=== PATIENT | female | born 2000 | race African-American/Black ===

== ENCOUNTER 2024-07-05 17:31 | Emergency (ER) | payer OTHER, SELFPAY ==
[2024-07-05 18:30] VITALS: BP 157/98; PULSE 116; RESP 18; TEMP 37.1; O2SAT 98; BMI 36.1
--- NOTE | 2024-07-05 18:30 | ED_ITS ---
HPI - Skin/Abscess/Foreign Bdy General Chief complaint: General Medical Stated complaint: cyst on tailbone, getting bigger/on antibiotics Time Seen by Provider: 07/05/24 20:32 History of Present Illness ED Provider: Ami BRAVO narrative: The patient is a 24-year-old who has had pain and swelling from a lesion on the buttocks for several days. Three days ago the patient went to an urgent care center and was diagnosed with a pilonidal cyst abscess and started on cephalexin. The patient has had a lot of discomfort when sitting and ultimately came to the emergency department today because of ongoing discomfort. No fever. The patient has never had this problem before. Related Data Allergies Allergy/AdvReac Type Severity Reaction Status Date / Time No Known Allergies Allergy Verified 07/05/24 18:38 Review of Systems Review of Systems: Yes all other systems are reviewed and are negative [facility] Social History Social History Alcohol intake: current Alcohol intake frequency: holidays/special occasions only Smoked in Last 30 Days: No Use of substances other than those prescribed or required for medical reasons: Yes Substance Use Type: Marijuana Substance Use Frequency: Occasionally Advance Directives: No Advance Directives Information Provided: No Patient : No Physical Exam Vital Signs: Vital Signs: Last Vital Signs Temp 97.3 F 07/05/24 22:56 Pulse 99 07/05/24 22:56 Resp 16 07/05/24 22:56 BP 146/94 H 07/05/24 22:56 Pulse Ox 99 07/05/24 22:56 O2 Del Method Room Air 07/05/24 22:56 BMI result Body Mass Index 36.1 Const: Other: The patient is awake, alert, pleasant, cooperative, nontoxic. HEENT: Other: Face is symmetrical. Mucous membranes moist. Eyes: Other: Pupils are round equal, conjunctivae clear Neck: Neck: Yes full ROM Resp: Effort & Inspection: normal respiratory effort Skin: Other: The patient has an area of swelling and tenderness at the upper portion of the gluteal cleft, slightly to the left of midline. There is fluctuance. No significant overlying erythema. Neuro: Other: The patient is awake and alert with a normal mental status. The patient seems to be moving all extremities normally and seems to be grossly neurologically intact. Extrem: Other: Full range of motion of the hips. Course Course Course Narrative: This is a Rapid Medical Exam performed in triage by Kelsie Bond PA-C. Full HPI, ROS and PE to be performed by primary ED provider. 24 year-old transgender FTM w/ PMHx pilonidal cyst presenting to the ED c/o worsening cyst x3 days. admits has been on Keflex w/o relief, however area is growing. has been using heat w/o relief PE: standing, cannot sit, area not evaluated in triage Plan: eval, +/- I&D Medications Administered Discontinued Medications Generic Name Dose Route Start Last Admin Trade Name Elba PRN Reason Stop Dose Admin Lidocaine HCl 30 ml 07/05/24 20:45 07/05/24 21:44 Lidocaine Hcl 1 % 10 Ml Vial INFILTRATI 07/05/24 20:46 30 ml ONCE ONE Administration Medical Decision Making Medical Decision Making [facility] Narrative: Clinically the patient seems to have a pilonidal cyst abscess. This is the 1st event for this patient. Patient has been on cephalexin for a few days with no improvement. I used a bedside ultrasound to visualize what appeared to be an abscess slightly to the left of the midline at the top of the gluteal cleft. I then performed an incision and drainage and released a lot of pus. The abscess cavity was packed with iodoform gauze. The patient was referred to General surgery. After the procedure there seemed to be more bleeding than I anticipated. A pressure dressing was applied and the patient was observed for about half an hour. On re-examination the bleeding seemed to have abated and I felt the patient was appropriate for discharge. Procedures Abscess I/D Site: other (Pilonidal cyst abscess at the upper portion of the gluteal cleft) Side (if applicable): left Local Anesthetic: lidocaine 1% Amount of anesthesia used (mL): 10 Technique: incised with blade Amount of fluid expressed (mL): 20 Sent for culture/gram staining?: No Irrigation: No Packing used?: iodoform Complications: bleeding Discharge Plan Discharge Clinical Impression: Pilonidal cyst with abscess Patient Disposition: Home, Self-Care Instructions: Pilonidal Cyst (ED), Abscess (ED) Additional Instructions: Please plan on contacting the surgeon's office on Monday morning for a follow up appointment soon. Change the dressings over the abscess daily and as needed. Continue the antibiotic you were previously prescribed. Return to the emergency room if significantly worse. Referrals: Akosua Haynes MD [Physician] - (Pilonidal cyst abscess) Interventions: ED Discharge Assessment Last Done: 07/05/24 22:56 Discharge Date/Time: 07/05/24 22:56 Print Language: Macanese
[2024-07-05 21:39] VITALS: BP 111/56; PULSE 78; RESP 18; TEMP 37; O2SAT 98
[2024-07-05] MEDS: Lidocaine HCl 1 % 10 ML VIAL 30 ML INFILTRATI (21:44)
[2024-07-05 22:54] VITALS: BP 146/94; PULSE 99; RESP 16; TEMP 36.3; O2SAT 99
[2024-07-05 22:56] VITALS: BP 146/94; PULSE 99; RESP 16; TEMP 36.3; O2SAT 99
== END 2024-07-05 22:56 | disposition home or self-care (01) ==
PROVIDERS: Emergency Provider Emergency Medicine
DX: L05.01 Pilonidal cyst with abscess (principal)
CPT/HCPCS: 10080; 99284

== ENCOUNTER 2024-07-15 10:20 | Outpatient (AMB) | payer OTHER, SELFPAY ==
--- NOTE | 2024-07-15 10:26 | MHC.OFFVIS ---
Vital Signs 07/15/24 10:31 Height 4 ft 11 in Weight 179 lb BMI 36.1 BP 135/83 Blood Pressure Location Rt brachial Position Sitting Pulse 85 Intake Visit Reasons: pilonidal cyst (drained in ER) Intake Note: Patient here to f/u ER visit on 07-05-24 for I&D of pilonidal cyst. Finished Cephalexin. Patient c/o: tenderness, oozing, bleeding. Customer Solutions Representative Required: No Accompanied by: Self / Same As Patient Allergies No Known Allergies Allergy (Verified 07/15/24 10:27) HPI Comments Details: Patient was a proximally 2 weeks status post I&D of an infected pilonidal cyst/pilonidal abscess had patient presents for follow-up. Patient is currently undergoing local wound care in the former packing changes by significant other. Antibiotic course was completed. Symptoms have markedly improved. Chart was reviewed and patient evaluated [facility] Surgical History (Updated 07/15/24 @ 10:42 by Richard Ramos MD) H/O mastectomy Family History (Updated 07/15/24 @ 10:31 by GILBERTO Unger) Maternal Grandmother Colon cancer Sister Diabetes Social History Alcohol intake: current Alcohol intake frequency: holidays/special occasions only Substance Use Type: Marijuana Physical Exam Vital Signs: Last Vital Signs Pulse 85 07/15/24 10:31 BP 135/83 07/15/24 10:31 BMI result Body Mass Index 36.1 Back/Spine/Pelvis Other: Marielena cleft area demonstrates I&D site with packing removed and wound granulating well with no evidence of any purulence. Dressing reapplied Assessment & Plan Assessment & Plan (1) Pilonidal abscess of cleft: Code(s): L05.01 - Pilonidal cyst with abscess Category: Surgical (2) Status post incision and drainage: Code(s): Z98.890 - Other specified postprocedural states Category: Surgical Plan Patient was to continue local wound care. Patient will be scheduled to see me in approximately 1 week's time for follow-up. Once the acute infective process has resolved, patient would like to have this excised. In discussion was had regarding pilonidal cyst excision which will be reviewed in more detail at next visit. All questions answered. Patient will see me as directed or p.r.n.. Coding Level of Care Code New Pt Level 4 (81961) Diagnoses Pilonidal abscess of cleft L05.01 Status post incision and drainage Z98.890
[2024-07-15 10:31] VITALS: BP 135/83; PULSE 85; BMI 36.1
== END 2024-07-15 10:50 | disposition home or self-care (01) ==
PROVIDERS: Visit Provider Surgery
DX: L05.01 Pilonidal cyst with abscess (principal); Z98.890 Other specified postprocedural states
CPT/HCPCS: 99204

== ENCOUNTER → 2024-07-15 10:20 | Outpatient (BNVA) | payer OTHER, SELFPAY | PROVIDERS: Visit Provider Surgery | DX: L05.01 Pilonidal cyst with abscess (principal); Z98.890 Other specified postprocedural states | CPT/HCPCS: 99202 ==

== ENCOUNTER 2024-07-24 07:51 | Outpatient (AMB) | payer OTHER, SELFPAY ==
[2024-07-24 07:56] VITALS: BP 122/68; PULSE 88; BMI 35.9
--- NOTE | 2024-07-24 07:56 | A.OFFVIS_ITS ---
Vital Signs 07/24/24 07:56 Height 4 ft 11 in Weight 178 lb BMI 35.9 BP 122/68 Blood Pressure Location Rt brachial Position Sitting Pulse 88 Intake Visit Reasons: 1 1/2 wk follow up pilonidal cyst (drained in ER) Intake Note: Patient here s/p I&D pilonidal cyst. Finished Cephalexin. Patient c/o: cyst healed well. No longer applying gauze, dressing. Pyrometer Operator Required: No Accompanied by: Self / Same As Patient Allergies No Known Allergies Allergy (Verified 07/24/24 07:57) HPI Comments Details: Patient comes for follow-up. Pilonidal symptoms have nearly completely resolved. PFSH Surgical History H/O mastectomy Family History Maternal Grandmother Colon cancer Sister Diabetes Social History Alcohol intake: current Alcohol intake frequency: holidays/special occasions only Substance Use Type: Marijuana Physical Exam Vital Signs: Last Vital Signs Pulse 88 07/24/24 07:56 BP 122/68 07/24/24 07:56 BMI result Body Mass Index 35.9 Chest Other: Chest breath sounds bilaterally, HS 1 in GI Other: Abdomen is soft, benign Back/Spine/Pelvis Other: Essentially complete healing of status post I&D of pilonidal abscess wound. No evidence of any cellulitis or recurrence. Assessment & Plan Assessment & Plan (1) Pilonidal abscess of rangel cleft: Code(s): L05.01 - Pilonidal cyst with abscess Category: Surgical Plan As noted from prior visit, patient would like to have this excised. Risks, benefits, alternatives of excision of pilonidal cyst of cleft were reviewed with the patient extensively and and included but not limited to bleeding, infection, recurrence, numbness, pain, scarring, wound dehiscence, seroma formation of the patient wishes to proceed. All questions answered. Arrangements were made for this. Coding Level of Care Code Est Pt Level 5 (93128) Diagnoses Pilonidal abscess of cleft L05.01
== END 2024-07-24 08:31 | disposition home or self-care (01) ==
PROVIDERS: Visit Provider Surgery
DX: L05.01 Pilonidal cyst with abscess (principal)
CPT/HCPCS: 99214

== ENCOUNTER → 2024-07-24 07:51 | Outpatient (BNVA) | payer OTHER, SELFPAY | PROVIDERS: Visit Provider Surgery | DX: L05.01 Pilonidal cyst with abscess (principal); Z98.890 Other specified postprocedural states | CPT/HCPCS: 99212 ==

== ENCOUNTER 2024-08-23 13:10 | Outpatient (AMB) | payer OTHER, SELFPAY ==
[2024-08-23 13:18] VITALS: BP 110/68; PULSE 86; O2SAT 98; BMI 35.5
--- NOTE | 2024-08-23 13:18 | A.OFFPC_ITS ---
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 Syrup Required: No Allergies No Known Allergies Allergy (Verified 08/23/24 13:41) Medication List - Last Reconciled 08/23/24 by Radha Lehman PA-C testosterone cypionate 200 mg IM Q2W Tobacco use date assessed: 08/23/24 Dental Screening Dental Screen Date: 08/23/24 Did you have a dental visit in the last 12 months?: Yes Did you have a dental problem in the last 6 months where you did not have access to dental care?: No Was dental information given to patient?: Patient has dentist HPI Establish Care HPI Details 24-year-old assigned female at tra nsition to male with no documented past medical history coming to the office for the 1st time. In review of the notes, patient was seen in [facility] ED 07/07/2024 for pilonidal cyst and referred to General surgery for incision and drainage. [facility] and [facility] 6 months. Uses he/him pronouns. 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 He has no acute concerns today. [facility] Surgical History H/O mastectomy Family History Maternal Grandmother Colon cancer Sister Diabetes Social History Housing: Apartment Alcohol intake: current Alcohol intake frequency: holidays/special occasions only Patient Tobacco Use Status: Never used Tobacco Substance Use Type: Marijuana service: No Current occupational status: employed Cognitive needs: No Hearing needs: No Vision needs: No Female Reproductive History Menstrual control method: implanted Questionnaire PHQ-9 Over the last 2 weeks, how often have you been bothered by any of the following problems? 1. Little interest or pleasure in doing things: not at all 2. Feeling down, depressed, or hopeless: not at all 3. Trouble falling or staying asleep, or sleeping too much: not at all 4. Feeling tired or having little energy: not at all 5. Poor appetite or overeating: not at all 6. Feeling bad about yourself - or that you are a failure or have let yourself or your family down: not at all 7. Trouble concentrating on things, such as reading the newspaper or watching television: not at all 8. Moving or speaking so slowly that other people could have noticed. Or the opposite - being so fidgety or restless that you have been moving around a lot more than usual: not at all 9. Thoughts that you would be better off or of hurting yourself in some way: not at all Total score: 0 Depression Screening Interpretation: Negative Depression Screening Done: Yes 63285 - PHQ-9 Billing: Yes Source: Developed by Drs. Judd Hollins, Mariam Putnam, Shaheen Talbot and colleagues, with an educational rainer from [employer]. Thrive Questionnaire Date Thrive assessed: 08/23/24 I am a: Patient What is your living situation today?: I have a steady place to live Within the past 12 months, did the food you bought not last and you didn't have the money to get more?: Never true Within the past 12 months, did you worry whether your food would run out before you got money to buy more?: Sometimes True Do you have trouble paying for medicines?: No Do you have trouble getting transportation to medical appointments?: No Do you have trouble paying your heating and electricity bill?: No Do you have trouble taking care of your child, family member or friend?: No Do you have trouble with day-to-day activities such as bathing, preparing meals, shopping, managing finances, etc.?: No Are you currently unemployed and looking for a job?: No Are you interested in more education?: I choose not to answer this question Please select the resources that you would like help with: None Currently or been in a relationship where the following occur: No concerns reported THRIVE Score: 1 AUDIT C Alcohol Use Questionnaire (AUDIT-C) 1. How often do you have a drink containing alcohol?: 2-4 times a month 2. How many drinks containing alcohol do you have on a typical day when you are drinking?: 3 or 4 3. How often do you have six or more drinks on one occasion?: Never Total Score: 3 TSEPHEN-7 AMB Questionnaire STEPHEN-7 Date STEPHEN - 7 assessed: 08/23/24 Feeling nervous, anxious, or on edge: 1 = Several days Not being able to stop or control worryin = Several days Worrying too much about different things: 1 = Several days Trouble relaxin = Not at all Being so restless that it is hard to sit still: 0 = Not at all Becoming easily annoyed or irritable: 0 = Not at all Feeling afraid as if something awful might happen: 0 = Not at all Total STEPHEN-7 score (0-4 normal; 5-9 mild; 10-14 moderate; 15-21 severe): 3 Source: Developed by Drs. Judd Hollins, Mariam Putnam, Shaheen Talbot and colleagues, with an educational rainer from [employer]. STEPHEN-7 Assessment Billing STEPHEN-7 Assessment Tool: STEPHEN-7 Assessment 48290 Review of Systems Const Denies body aches, Denies fatigue, Denies fever(s), Denies frequent falls, Denies headache(s) and Denies weakness Eyes Reports no additional complaints, Denies change in vision and Reports requires corrective lenses ENT Denies dysphagia, Denies dizziness, Denies facial pain, Denies headache(s), Denies nasal congestion and Denies odynophagia Card Denies chest pain, Denies syncope, Denies irregular heart rhythm, Denies leg edema, Denies lightheadedness and Denies dyspnea Resp Denies cough and Denies dyspnea GI Denies constipation, Denies dysphagia, Denies dyspepsia, Denies diarrhea, Denies nausea, Denies odynophagia and Denies vomiting Denies urinary frequency, Denies dysuria, Denies urinary hesitancy and Denies urinary urgency Musc Denies back pain and Denies myalgias Skin/Breast Reports system reviewed and no additional complaints, except as documented Neuro Denies dizziness, Denies syncope, Denies frequent falls, Denies headache(s) and Denies weakness Psych Reports no additional complaints Endo Denies fatigue Physical exam (Primary Care) Vital Signs: Last Vital Signs Pulse 86 08/23/24 13:18 BP 110/68 08/23/24 13:18 Pulse Ox 98 08/23/24 13:18 Oxygen Delivery Method Room Air 08/23/24 13:18 BMI result Body Mass Index 35.5 Tobacco/Smoking Status: Tobacco use Status Tobacco use date assessed 08/23/24 08/23/24 13:19 Patient Tobacco Use Status Never used Tobacco 08/23/24 13:19 PHQ-9: PHQ-9 Score PHQ-9: Total score 0 08/23/24 14:02 Depression Screening Interpretation: Negative Thrive Assessment: Date of Thrive Assessment Date Thrive assessed 08/23/24 08/23/24 13:19 Currently or been in a relationship where the following occur: No concerns reported Const General: cooperative, healthy appearing, comfortable and no acute distress Orientation/consciousness: patient oriented x3 HENMT Head: Yes normocephalic Ears: hearing grossly normal bilaterally, external ears normal, TM's normal bilaterally and EAC's normal General nose exam: Normal external nose present Face and sinus: Yes normal facial exam and Yes sinuses nontender Mouth: Normal oral and palatal mucosa present and tongue normal Throat: Yes posterior oropharynx normal Eyes General: appearance normal, both eyes and all related structures Conjunctivae: conjunctivae normal Pupils: Equal, round and reactive pupils present EOM: EOMs intact bilaterally and No Nystagmus present Neck Neck: Yes normal visual inspection, Yes full ROM and Yes no lymphadenopathy Chest Chest palpation & inspection: normal inspection of the chest Resp Effort & Inspection: normal respiratory effort Auscultation: clear to auscultation bilaterally, no crackles, no rales, no rhonchi, no wheezes and breath sounds present Cardio Rate: regular rate Rhythm: regular rhythm Peripheral pulses: radial pulses present and dorsalis pedis present GI Inspection: Yes normal to inspection and No Abdominal wall edema Palpation (GI): Soft to palpation, not firm and nontender Auscultation: normal bowel sounds Rectal Exam - Female: deferred General: Yes no CVA tenderness Back/Spine/Pelvis Back: no CVA tenderness Skin General skin exam: no rashes or lesions noted Neuro General: patient oriented x3 Cranial nerves: Yes Equal, round and reactive pupils present, Yes Midline tongue present, Yes Ability to bilaterally elevate shoulders present and No Nystagmus present Gait exam (Neuro): Normal gait present Extrem General: Yes normal to inspection, Yes full ROM, No no pedal edema and No edema Psych Speech and movement: Normal speech and movement present Affect: normal affect Insight: Good insight present (Psych) Judgement: Good judgement present (Psych) Office Procedures Flu Questionnaire Does the patient have a severe egg allergy?: No Does the patient have severe life threatening allergies?: No Does the patient have a fever or illness today?: No Has the patient ever had Guillain-[place] Syndrome?: No Has the patient ever had any past reaction to a flu shot?: No Immunizations Fluarix Triv [id number] (PF) 45 mcg (15 mcg x 3)/0.5 mL IM syringe Performing Provider: Radha Lehman PA-C Performing Location: [facility] Administered by: GILBERTO Concepcion on 08/23/24 13:28 Dose Route Admin Location Dispensed Lot Number Expiration Date ND Supervisor [employer] 0.5 mL IM Left Deltoid 0.5 mL [id number] 05/19/25 [id number] [employer] VIS Given Date VIS Provided VIS Publication Date 08/23/24 Single Vaccine 21 Eligibility Eligibility Date Funding Source Not VFC Eligible 08/23/24 Private Boostrix Tdap 2.5 Lf unit-8 mcg-5 Lf/0.5 mL intramuscular syringe Performing Provider: Radha Lehman PA-C Performing Location: [facility] [facility] Administered by: GILBERTO Concepcion on 08/23/24 14:02 Dose Route Admin Location Dispensed Lot Number Expiration Date [place] Supervisor [employer] 0.5 mL IM Left Deltoid 0.5 mL [id number] 09/08/26 [id number] [facility] V[facility] Given Date VIS Provided VIS Publication Date 08/23/24 Single Vaccine 21 Eligibility Eligibility Date Funding Source Not VFC Eligible 08/23/24 Private Coding Level of Care Code New Pt Prev Care 18-39yr(44724 Diagnoses Annual physical exam Z00.00 Pilonidal abscess of rangel cleft L05.01 Personal history of ongoing treatment with hormonal therapy Z79.890 Additional Codes STEPHEN-7 Assessment Billing - STEPHEN-7 Assessment Tool: STEPHEN-7 Assessment 55068 ([id number]) Assessment & Plan Assessment & Plan (1) Annual physical exam: Code(s): Z00.00 - Encounter for general adult medical examination without abnormal findings Category: Medical Plan: Patient is not up-to-date with routine screenings and vaccinations. Tetanus shot is up-to-date and was given at today's appointment otherwise up-to-date with vaccinations. Patient declines Pap smear screening and declines referral to Gynecology at this time. [facility] (2) Pilonidal abscess of cleft: Code(s): L05.01 - Pilonidal cyst with abscess Category: Surgical Plan: Scheduled with General surgery for surgical drainage. (3) Personal history of ongoing treatment with hormonal therapy: Code(s): Z79.890 - Hormone replacement therapy Category: Medical Plan: [facility] Plan This note was constructed using voice recognition software. While every effort has been made to ensure accuracy and coal picker, still areas may have been included sometimes these areas may affect the content or meeting of the given symptoms. Total time spent caring for the patient today was 30 minutes. This includes time spent before the visit reviewing the chart, time spent during the visit, and time spent after the visit and documentation. Orders: Orders Vitamin B12 and Folate 08/23/24 Z.00 - Encounter for general adult medical examination without abnormal findings Vitamin D 25-OH (D2 and D3) 08/23/24. - Encounter for general adult medical examination without abnormal findings Influenza [id number] Immunization 08/23/24 Z23 - Encounter for immunization Complete Blood Count Auto Diff 08/23/24. - Encounter for general adult medical examination without abnormal findings Comprehensive Met. Panel 08/23/24. - Encounter for general adult medical examination without abnormal findings Free T4 (Free Thyroxine) 08/23/24.00 - Encounter for general adult medical examination without abnormal findings TSH reflex Free T4 08/23/24.00 - Encounter for general adult medical examination without abnormal findings TDaP Immunization 08/23/24 Z23 - Encounter for immunization Referrals Optometry Referral Z. - Encounter for general adult medical examination without abnormal findings
== END 2024-08-23 14:12 | disposition home or self-care (01) ==
DX: Z00.00 Encounter for general adult medical examination without abnormal findings (principal); L05.01 Pilonidal cyst with abscess; Z79.890 Hormone replacement therapy

== ENCOUNTER 2024-08-23 13:10 | Outpatient (REF) | payer OTHER, SELFPAY ==
[2024-08-23 14:45] LABS: MANUAL DIFF FLAG NO
[2024-08-23 15:20] LABS: Basophils Percent Auto 0.1 % (0-2); Eosinophils Absolute Auto 0.1 X10*3/uL (0.0-0.4); Eosinophils Percent Auto 1.3 % (0-4); Hematocrit 48.3 % (37.0-47.0); Hemoglobin 16.3 g/dl (12.0-16.0); Imm Gran Abs Auto 0.02 X10*3/uL (0.00-0.03); Imm Gran Pct Auto 0.2 % (0.0-0.4); Lymphocytes Absolute Auto 2.8 X10*3/uL (1.2-4.9); Lymphocytes Percent Auto 32.7 % (20-40); Mean Corpuscular HGB Conc 33.7 g/dl (31.0-35.0); Mean Corpuscular Hemoglobin 31.2 pg (27.0-33.0); Mean Corpuscular Volume 92.4 fL (80.0-98.0); Mean Platelet Volume 10.1 fL (9.4-12.3); Monocytes Absolute Auto 0.6 X10*3/uL (0.1-1.2); Monocytes Percent Auto 6.8 % (2-11); Neutrophils Percent Auto 58.9 % (45-73); Platelet Count 247 X10*3/uL (160-400); Red Blood Count 5.23 X10*6/uL (4.20-5.50); White Blood Count 8.5 X10*3/uL (4.8-10.8)
[2024-08-23 16:17] LABS: Folate 12.4 ng/mL (> or = 4.0); Vitamin B12 494 pg/mL (200-900)
[2024-08-23 18:07] LABS: Free T4 (Free Thyroxine) 0.88 ng/dL (0.71-1.85); TSH reflex Free T4 0.99 uIU/mL (0.32-4.0)
[2024-08-23 18:18] LABS: Alanine Aminotransferase 23 U/L (0-31); Albumin Level 4.8 g/dL (3.5-5.0); Alkaline Phosphatase 70 U/L (39-117); Anion Gap 11 (12-20); Aspartate Amino Transferase 28 U/L (5-31); Bilirubin Total 0.4 mg/dL (0.0-1.0); Blood Urea Nitrogen 12 mg/dL (9-16); Calcium 9.5 mg/dL (8.4-10.2); Carbon Dioxide 27 mmol/L (22-29); Chloride 107 mmol/L (96-108); Estimated Glomerular Filt Rate > 60; Glucose Random 77 mg/dL (60-115); Potassium 3.9 mmol/L (3.3-5.1); Sodium 141 mmol/L (135-145); Total Protein 7.9 g/dL (6.5-8.0)
[2024-08-29 15:48] LABS: Vitamin D 25-OH, D2 <4 ng/mL; Vitamin D 25-OH, D3 16 ng/mL; Vitamin D 25-OH, Total 16 ng/mL (30-100)
== END 2024-08-23 13:11 | disposition home or self-care (01) ==
LOC: HO.LAB 13:10
DX: Z00.00 Encounter for general adult medical examination without abnormal findings (principal); L05.01 Pilonidal cyst with abscess; Z79.890 Hormone replacement therapy; Z23 Encounter for immunization
CPT/HCPCS: 36415; 80053; 82306; 82607; 82746; 84439; 84443; 85025; 90471; 90472; 90656; 90715; 96127; 99385

== ENCOUNTER 2024-08-28 11:00 | Outpatient (AMB) | payer OTHER, SELFPAY ==
[2024-08-28 10:55] VITALS: BP 100/80; PULSE 70; O2SAT 96; BMI 36.7
--- NOTE | 2024-08-28 10:55 | A.OFFPC_ITS ---
Vital Signs 08/28/24 10:55 Height 4 ft 11 in Weight 181 lb 8 oz BMI 36.7 BP 100/80 Blood Pressure Location Lt brachial Position Sitting Pulse 70 Pulse Source Pulse Oximeter Pulse Oximetry (%) 96 Oxygen Delivery Method Room Air Intake Visit Reasons: Pre-Op Pilonidal Cyst DR. Ramos 09/13/24 Intake Note: Patient is here for a Pre-op for Pilonidal Cyst scheduled with Dr. Ramos on 09/13/2024 Residential Property Manager Required: No Accompanied by: Self / Same As Patient Allergies No Known Allergies Allergy (Verified 08/28/24 11:13) Medication List - Last Reconciled 08/28/24 by Radha Lehman PA-C testosterone cypionate 200 mg IM Q2W Tobacco use date assessed: 08/28/24 Dental Screening Dental Screen Date: 08/28/24 Did you have a dental visit in the last 12 months?: No Did you have a dental problem in the last 6 months where you did not have access to dental care?: No Was dental information given to patient?: Patient has dentist HPI Pre-Op Pilonidal Cyst DR. Ramos 09/13/24 HPI Details 24-year-old assigned female at tra nsition to male with no past medical history coming in for preoperative exam. Patient is scheduled with Dr. Ramos to have pilonidal abscess drained 09/13/2024. Patient has no acute concerns today. [facility] Surgical History H/O mastectomy Family History Maternal Grandmother Colon cancer Sister Diabetes Social History Housing: Apartment Alcohol intake: current Alcohol intake frequency: holidays/special occasions only Patient Tobacco Use Status: Never used Tobacco Substance Use Type: Marijuana service: No Current occupational status: employed Cognitive needs: No Hearing needs: No Vision needs: No Questionnaire PHQ-9 Over the last 2 weeks, how often have you been bothered by any of the following problems? 1. Little interest or pleasure in doing things: not at all 2. Feeling down, depressed, or hopeless: not at all 3. Trouble falling or staying asleep, or sleeping too much: not at all 4. Feeling tired or having little energy: not at all 5. Poor appetite or overeating: not at all 6. Feeling bad about yourself - or that you are a failure or have let yourself or your family down: not at all 7. Trouble concentrating on things, such as reading the newspaper or watching television: not at all 8. Moving or speaking so slowly that other people could have noticed. Or the opposite - being so fidgety or restless that you have been moving around a lot more than usual: not at all 9. Thoughts that you would be better off or of hurting yourself in some way: not at all Total score: 0 Depression Screening Interpretation: Negative Depression Screening Done: Yes 67999 - PHQ-9 Billing: Yes Source: Developed by Drs. Judd Hollins, Mariam Putnam, Shaheen Talbot and colleagues, with an educational rainer from [employer]. Thrive Questionnaire Date Thrive assessed: 08/28/24 I am a: Patient What is your living situation today?: I have a steady place to live Within the past 12 months, did the food you bought not last and you didn't have the money to get more?: Never true Within the past 12 months, did you worry whether your food would run out before you got money to buy more?: Sometimes True Do you have trouble paying for medicines?: No Do you have trouble getting transportation to medical appointments?: No Do you have trouble paying your heating and electricity bill?: No Do you have trouble taking care of your child, family member or friend?: No Do you have trouble with day-to-day activities such as bathing, preparing meals, shopping, managing finances, etc.?: No Are you currently unemployed and looking for a job?: No Are you interested in more education?: I choose not to answer this question Please select the resources that you would like help with: None Currently or been in a relationship where the following occur: No concerns reported THRIVE Score: 1 AUDIT C Alcohol Use Questionnaire (AUDIT-C) 1. How often do you have a drink containing alcohol?: 2-4 times a month 2. How many drinks containing alcohol do you have on a typical day when you are drinking?: 3 or 4 3. How often do you have six or more drinks on one occasion?: Never Total Score: 3 STEPHEN-7 AMB Questionnaire STEPHEN-7 Date STEPHEN - 7 assessed: 08/28/24 Feeling nervous, anxious, or on edge: 1 = Several days Not being able to stop or control worryin = Several days Worrying too much about different things: 1 = Several days Trouble relaxin = Not at all Being so restless that it is hard to sit still: 0 = Not at all Becoming easily annoyed or irritable: 0 = Not at all Feeling afraid as if something awful might happen: 0 = Not at all Total STEPHEN-7 score (0-4 normal; 5-9 mild; 10-14 moderate; 15-21 severe): 3 Source: Developed by Drs. Judd Hollins, Mariam Putnam, Shaheen Talbot and colleagues, with an educational rainer from [employer]. STEPHEN-7 Assessment Billing STEPHEN-7 Assessment Tool: STEPHEN-7 Assessment 81236 Review of Systems Const Denies body aches, Denies fatigue, Denies fever(s), Denies frequent falls, Denies headache(s) and Denies weakness Eyes Reports no additional complaints and Denies change in vision ENT Denies dysphagia, Denies dizziness, Denies facial pain, Denies headache(s), Denies nasal congestion and Denies odynophagia Card Denies chest pain, Denies syncope, Denies irregular heart rhythm, Denies leg edema, Denies lightheadedness and Denies dyspnea Resp Denies cough and Denies dyspnea GI Denies constipation, Denies dysphagia, Denies dyspepsia, Denies diarrhea, Denies nausea, Denies odynophagia and Denies vomiting Denies urinary frequency, Denies dysuria, Denies urinary hesitancy and Denies urinary urgency Musc Denies back pain and Denies myalgias Skin/Breast Reports system reviewed and no additional complaints, except as documented Neuro Denies dizziness, Denies syncope, Denies frequent falls, Denies headache(s) and Denies weakness Psych Reports no additional complaints Endo Denies fatigue Physical exam (Primary Care) Vital Signs: Last Vital Signs Pulse 70 08/28/24 10:55 BP 100/80 08/28/24 10:55 Pulse Ox 96 08/28/24 10:55 Oxygen Delivery Method Room Air 08/28/24 10:55 BMI result Body Mass Index 36.7 Tobacco/Smoking Status: Tobacco use Status Tobacco use date assessed 08/28/24 08/28/24 11:06 Patient Tobacco Use Status Never used Tobacco 08/28/24 10:57 PHQ-9: PHQ-9 Score PHQ-9: Total score 0 08/28/24 11:06 Depression Screening Interpretation: Negative Thrive Assessment: Date of Thrive Assessment Date Thrive assessed 08/28/24 08/28/24 11:06 Currently or been in a relationship where the following occur: No concerns reported Const General: cooperative, healthy appearing, comfortable and no acute distress Orientation/consciousness: patient oriented x3 HENMT Head: Yes normocephalic Ears: hearing grossly normal bilaterally General nose exam: Normal external nose present Eyes General: appearance normal, both eyes and all related structures Conjunctivae: conjunctivae normal Neck Neck: Yes full ROM and Yes no lymphadenopathy Resp Effort & Inspection: normal respiratory effort Auscultation: clear to auscultation bilaterally, no crackles, no rales, no rhonchi and no wheezes Cardio Rate: regular rate Rhythm: regular rhythm Skin General skin exam: no rashes or lesions noted Neuro General: patient oriented x3 Gait exam (Neuro): Normal gait present Extrem General: Yes normal to inspection, Yes full ROM and No edema Psych Affect: normal affect Attitude: cooperative Insight: Good insight present (Psych) Judgement: Good judgement present (Psych) Coding Level of Care Code Est Pt Level 3 (06701) Diagnoses Pre-op evaluation Z01.818 Additional Codes STEPHEN-7 Assessment Billing - STEPHEN-7 Assessment Tool: STEPHEN-7 Assessment 64900 ([id number]) Assessment & Plan Assessment & Plan (1) Pre-op evaluation: Code(s): Z01.818 - Encounter for other preprocedural examination Category: Medical Plan: Regarding preop clearance, the patient is at low cardiovascular risk for proposed surgery due to lack of comorbidities and age. Reviewed with the patient that no surgery is completely free of risk and that this examination is to assist the surgeon in reviewing informed consent. Blood work evaluated. No further workup needed at this time and may proceed with the contemplated procedure. Thank you very much for letting me participate in the care of this patient. Plan This note was constructed using voice recognition software. While every effort has been made to ensure accuracy and explosive operator fuse, still areas may have been included sometimes these areas may affect the content or meeting of the given symptoms. Total time spent caring for the patient today was 30 minutes. This includes time spent before the visit reviewing the chart, time spent during the visit, and time spent after the visit and documentation.
== END 2024-08-28 11:29 | disposition home or self-care (01) ==
DX: Z01.818 Encounter for other preprocedural examination (principal)

== ENCOUNTER → 2024-08-28 11:00 | Outpatient (BNVA) | payer OTHER, SELFPAY | DX: Z01.818 Encounter for other preprocedural examination (principal) | CPT/HCPCS: 96127; 99212 ==

== ENCOUNTER 2024-09-27 12:23 | Emergency (ER) | payer OTHER, SELFPAY ==
[2024-09-27 12:41] VITALS: BP 154/93; PULSE 101; RESP 20; TEMP 36.8; O2SAT 10; BMI 35.4
--- NOTE | 2024-09-27 12:41 | ED.GENADULT ---
HPI - General Adult General Chief complaint: Skin/Abscess/Foreign Body Stated complaint: Cyst Time Seen by Provider: 09/27/24 13:17 Source: patient Mode of arrival: ambulatory Limitations: no limitations History of Present Illness ED Provider: ASHLYN REAL PA-C HPI narrative: 24 year old assigned female at presents to the emergency department for evaluation of cyst to buttock region x1 week. Reports history of similar 3 months ago. He was diagnosed with a pilonidal cyst and had the area drained. He was placed on antibiotics with complete resolution. He admits he had to push his follow up appointment with general surgery as he did not have a vehicle at the time. His appointment is not until october of this year with Dr. Ramos. States that approximately 1 week ago his pilonidal cyst began to return. Reports increasing pain/ swelling to the area making it difficult to sit. He has been taking tylenol at home without relief. last dose was last night. denies fever, chills, drainage from the area. Related Data Home Medications ?Medication ?Instructions ?Recorded ?Confirmed testosterone cypionate 200 mg/mL 200 mg IM Q2W 07/15/24 09/11/24 intramuscular oil Previous Rx's ?Medication ?Instructions ?Recorded cholecalciferol (vitamin D3) 25 25 mcg PO DAILY #90 caps 08/29/24 mcg (1,000 unit) capsule cephalexin 500 mg capsule 500 mg PO QID 7 days #28 caps 09/27/24 doxycycline hyclate 100 mg tablet 100 mg PO BID 7 days #14 tabs 09/27/24 Allergies Allergy/AdvReac Type Severity Reaction Status Date / Time No Known Allergies Allergy Verified 09/27/24 12:43 Review of Systems Review of Systems: Constitutional: No fever, chills, fatigue, night sweats, weight changes ENT/Mouth: No ear pain, hearing loss, nasal congestion, sinus pain, rhinorrhea, sore throat Eyes: No eye pain, swelling, redness, vision changes, discharge Cardio: No chest pain, palpitations, LONG, orthopnea, peripheral edema Pulm: No SOB, cough, sputum, wheezing, dyspnea, hemoptysis GI: No nausea, vomiting, hematemesis, abdominal pain, diarrhea, constipation, hematochezia, melena : No irregular bleeding, dysuria, frequency, urgency, hesitancy, hematuria, flank pain, urinary flow changes, urinary incontinence or retention MSK: No back pain, neck pain, joint pain, myalgias Skin: No lesions, rashes, +abscess Neuro: No weakness, numbness, paresthesias, LOC, dizziness, headache Psych: No anxiety/panic, depression, SI/HI, AH/VH All other systems reviewed and are negative. [facility] Past Medical History Attestation statement: The following information was validated with the patient. Source: old records reviewed and nursing notes reviewed Medical History Transgender Pilonidal cyst Surgical History Status post incision and drainage H/O mastectomy Family History Family History Maternal Grandmother Colon cancer Sister Diabetes Social History Social History Housing: Apartment Alcohol intake: current Alcohol intake frequency: holidays/special occasions only Patient Tobacco Use Status: Never used Tobacco Substance Use Type: Marijuana Advance Directives: No Advance Directives Information Provided: Yes Do you have a plan to hurt others: No Plan service: No Current occupational status: employed Cognitive needs: No Hearing needs: No Vision needs: No Physical Exam ED Vital Signs: Vital Signs - 24 hr 09/27/24 12:41 09/27/24 14:07 09/27/24 15:19 Temperature 98.2 F 98.6 F 98.1 F Pulse Rate 101 H 75 84 Respiratory Rate 20 16 16 Blood Pressure 154/93 H 132/69 131/79 Pulse Oximetry 10 L 96 97 Oxygen Delivery Method Room Air Room Air Room Air 09/27/24 15:30 Temperature 98.1 F Pulse Rate 84 Respiratory Rate 16 Blood Pressure 131/79 Pulse Oximetry 97 Oxygen Delivery Method Room Air BMI result Body Mass Index 35.4 vitals stable, afebrile General: Well appearing, in no acute distress. Skin: +4cm x 3cm area of erythema to rangel cleft, indurated w/ central fluctuance. exquisitely ttp. no active drainage/ bleeding. Head: Normocephalic, atraumatic. EENT: Hearing is intact b/l. Conjunctiva clear. Moist mucous membranes.? Neck: Supple without LAD Cardiac: Chest wall symmetric. RRR Lungs: Normal respiratory effort without accessory muscle use Abdomen: Soft, non-tender, non-distended. No rebound tenderness or guarding. Positive BS x4. Back: No midline spinous or paraspinal tenderness. No step off deformity. Ext: Upper and lower extremities atraumatic, without tenderness, deformity, swelling or erythema Neuro: AOx3. Normal speech. Ambulating with steady gait. Psych: Appropriate mood and affect. Responds appropriately to questions. Course Course Course Narrative: This is an RME done by [facility]: Additional HPI, ROS, PE not included below will be deferred to primary provider. 24-year-old male ( female --> male trans) presents with concerns of pilonidal cyst requiring drainage. Scheduled to see surgery however has not yet seen them. PE - referred due to privacy concerns in triage Reevaluation(s) Reevaluation #1: pilonidal abscess drained. see procedure note. patient tolerated procedure well. advised to keep appointment with general surgeon next month. will send keflex and doxy to pharmacy for coverage. Patient has remained stable throughout ED visit today. Discussed worrisome signs and symptoms and when to return to the ED. All questions answered at this time. Patient is agreeable with disposition and stable for discharge. Medications Administered Discontinued Medications Generic Name Dose Route Start Last Admin Trade Name Freq PRN Reason Stop Dose Admin Lidocaine HCl 5 ml 09/27/24 13:51 09/27/24 14:40 Lidocaine Hcl 1 % Mpf 5 Ml Vial INFILTRATI 09/27/24 13:52 5 ml ONCE ONE Administration Lidocaine HCl 5 ml 09/27/24 13:52 09/27/24 14:41 Lidocaine Hcl 1 % Mpf 5 Ml Vial INFILTRATI 09/27/24 13:53 5 ml ONCE ONE Administration Morphine Sulfate 15 mg 09/27/24 13:57 09/27/24 14:41 Morphine Sulfate Immed Release 15 Mg Tablet PO 09/27/24 13:58 15 mg ONCE ONE Administration Procedures Abscess I/D Site: other (Pilonidal) Local Anesthetic: lidocaine 1% Amount of anesthesia used (mL): 6 Technique: incised with blade Amount of fluid expressed (mL): 10 Sent for culture/gram staining?: No Irrigation: Yes Packing used?: none Complications: bleeding Medical Decision Making Medical Decision Making [facility] Narrative: 24 year old assigned female at presents to the emergency department for evaluation of cyst to buttock region x1 week. vital signs stable. afebrile. he is nontoxic appearing and in nad. appears uncomfortable. 4cm x 3cm area of erythema to cleft, indurated w/ central fluctuance. exquisitely ttp. no active drainage/ bleeding. Differential diagnosis includes cellulitis, pilonidal cyst, pilonidal abscess. no concern for deeper soft tissue infection, perirectal or perianal abscess, fistula, hemorrhoid Plan for pain control, I&D, and disposition. Differential Diagnosis Differential Diagnoses: The differential diagnosis associated with the presentation includes as above. Admission/Observation not indicated External Record Review External record reviewed: Inpatient record Prescription Management I considered prescription management with: Pain Medication and Antibiotic (keflex, doxy) Chronic Conditions Patient?s care impacted by: Other (pilonidal cyst) Social Determinants Patient?s care significantly limited by Social Determinants of Health including: Other Social Determinant of Health Critical Care Time Critical Care Time Critical Care Time: No Discharge Plan Discharge Clinical Impression: Pilonidal abscess of cleft, Status post incision and drainage Patient Disposition: Home, Self-Care Instructions: Pilonidal Cyst (ED), Sitz Bath (DC), Abscess Follow-up (ED) Additional Instructions: You were evaluated in the ED today for a pilonidal abscess.? Please keep the area surrounding the abscess clean and dry. You will be given a prescription for antibiotics (Keflex and Doxycycline). Please take the antibiotics as directed for the full course of the medication. I recommend you take 600mg ibuprofen every 6 hours or Tylenol 650mg every 6 hours as needed for pain. If needed, you can alternate these medications so that you take one medication every 3 hours. For example, at noon take ibuprofen, then at 3pm take Tylenol, then at 6pm take ibuprofen. Please schedule an appointment with your primary care provider as soon as possible for follow up. Keep your follow-up appointment with general surgery next month. Return to the Emergency Department if you experience fevers greater than 100.4F, increase in area of redness or swelling, increasing amount of discharge from the area, increased tenderness around the area, or any other concerning symptoms. Prescriptions: New cephalexin 500 mg capsule 500 mg PO QID 7 Days Qty: 28 0RF doxycycline hyclate 100 mg tablet 100 mg PO BID 7 Days Qty: 14 0RF No Action cholecalciferol (vitamin D3) 25 mcg (1,000 unit) capsule 25 mcg PO DAILY Qty: 90 3RF testosterone cypionate 200 mg/mL oil 200 mg IM Q2W Referrals: [facility] [place] General Surgeons [Provider Group] - 1 week (pilonidal abscess) Stand Alone Forms: Work/School Release Interventions: ED Discharge Assessment Last Done: 09/27/24 15:30 Discharge Date/Time: 09/27/24 15:30 Print Language: Portuguese
[2024-09-27 14:07] VITALS: BP 132/69; PULSE 75; RESP 16; TEMP 37; O2SAT 96
[2024-09-27] MEDS: Lidocaine HCl 1 % MPF 5 ML VIAL INFILTRATI ×2 (14:40→14:41)
[2024-09-27] MEDS: Morphine Sulfate Immed Release 15 MG TABLET PO (14:41)
[2024-09-27 15:19] VITALS: BP 131/79; PULSE 84; RESP 16; TEMP 36.7; O2SAT 97
[2024-09-27 15:30] VITALS: BP 131/79; PULSE 84; RESP 16; TEMP 36.7; O2SAT 97
== END 2024-09-27 15:30 | disposition home or self-care (01) ==
PROVIDERS: Emergency Provider Emergency Medicine
DX: L05.91 Pilonidal cyst without abscess (principal); F64.0 Transsexualism; F12.90 Cannabis use, unspecified, uncomplicated; Z79.890 Hormone replacement therapy
CPT/HCPCS: 10080; 99283; 99284; J2003

== ENCOUNTER 2024-10-07 14:27 | Outpatient (AMB) | payer OTHER, SELFPAY ==
[2024-10-07 14:33] VITALS: BP 128/72; PULSE 73; BMI 36.8
--- NOTE | 2024-10-07 14:33 | A.OFFVIS_ITS ---
Vital Signs 10/07/24 14:33 Height 4 ft 11 in Weight 182 lb BMI 36.8 BP 128/72 Blood Pressure Location Rt brachial Position Sitting Pulse 73 Intake Visit Reasons: pilonidal cyst Intake Note: Patient here for ER follow up. Was seen at ER on 09-27-2024 for pilonidal cyst/abscess inflammation. Patient reports still a few days left of Cephalexin and Doxycycline. Reports lesion is dried up. Denies oozing, pain. 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 Patient was to have surgery several months ago. Because of family/social issues surgery was canceled. In the meantime, patient had recurrence of abscess which required I and D by ER 2 weeks ago and presents here for follow-up. Symptoms have markedly improved. Patient would still like to undergo excision of this process PENDING SALE TO [facility] Medical History Transgender Pilonidal cyst Surgical History Status post incision and drainage H/O mastectomy Family History Maternal Grandmother Colon cancer Sister Diabetes Social History Housing: Apartment Alcohol intake: current Alcohol intake frequency: holidays/special occasions only Patient Tobacco Use Status: Never used Tobacco Substance Use Type: Marijuana service: No Current occupational status: employed Cognitive needs: No Hearing needs: No Vision needs: No Physical Exam Vital Signs: Last Vital Signs Pulse 73 10/07/24 14:33 BP 128/72 10/07/24 14:33 BMI result Body Mass Index 36.8 Chest Other: Chest breath sounds bilaterally, HS 1 in 2 GI Other: Abdomen corpulent, soft, benign Back/Spine/Pelvis Other: cleft area demonstrates completely healed I&D site of pilonidal disease/cyst. Assessment & Plan Assessment & Plan (1) Pilonidal cyst of rangel cleft: Code(s): L05.91 - Pilonidal cyst without abscess Category: Surgical Plan Once again, risks, benefits, and alternatives of pilonidal cyst excision of the rangel cleft were reviewed with the patient and included but not limited to bleeding, infection, recurrence, numbness, pain, scarring, seroma formation, wound dehiscence and the patient wishes to proceed. It was strongly reviewed with the patient that he patient needs to be somewhat sedentary for the 1st few weeks postoperatively to avoid dehiscence. Patient understands. All questions answered. Arrangements made for this procedure on a day which is convenient for the patient. Coding Level of Care Code Est Pt Level 5 (16752) Diagnoses Pilonidal cyst of rangel cleft L05.91
== END 2024-10-07 14:50 | disposition home or self-care (01) ==
PROVIDERS: Visit Provider Surgery
DX: L05.91 Pilonidal cyst without abscess (principal)
CPT/HCPCS: 99214

== ENCOUNTER → 2024-10-07 14:27 | Outpatient (BNVA) | payer OTHER, SELFPAY | PROVIDERS: Visit Provider Surgery | DX: L05.91 Pilonidal cyst without abscess (principal) | CPT/HCPCS: 99212 ==

== ENCOUNTER 2024-11-08 08:02 | Day surgery (SDC) | payer OTHER, SELFPAY ==
[2024-09-11 14:03] VITALS: BMI 35.9
--- NOTE | 2024-09-12 10:56 | HO.ANESPROP2 ---
HPI - Anesthesia Eval Consult details Narrative: 24yo M (transgender, assigned female at ) for Wide Local Excision Pilonidal Cyst of rangel cleft, prone position PMFSH Active Problems Active Problems: All Active Problems Pre-op evaluation (Acute) Personal history of ongoing treatment with hormonal therapy (Acute) Annual physical exam (Acute) Status post incision and drainage (Acute) Pilonidal abscess of rangel cleft (Acute) Past Medical History Medical History (Updated 09/11/24 @ 14:00 by Ashley Esteban RN) Transgender Pilonidal cyst Family History Family History Maternal Grandmother Colon cancer Sister Diabetes Surgical History Surgical History (Updated 09/11/24 @ 14:05 by Ashley Esteban RN) Status post incision and drainage H/O mastectomy Social History Social History Housing: Apartment Alcohol intake: current Alcohol intake frequency: holidays/special occasions only Patient Tobacco Use Status: Never used Tobacco Substance Use Type: Marijuana service: No Current occupational status: employed Cognitive needs: No Hearing needs: No Vision needs: No Meds Allergies Allergy/AdvReac Type Severity Reaction Status Date / Time No Known Allergies Allergy Verified 08/28/24 11:13 Home Medications ?Medication ?Instructions ?Recorded ?Confirmed ?Last Taken ?Type testosterone cypionate 200 mg/mL 200 mg IM Q2W 07/15/24 09/11/24 Unknown History intramuscular oil Exam Height,Weight and Vital Signs: Height 4 ft 11 in Weight 80.739 kg Pertinent Lab Results Pertinent Lab Results: Laboratory Tests 08/23/24 14:44 WBC 8.5 Hgb 16.3 H Hct 48.3 H Plt Count 247 Sodium 141 Potassium 3.9 Chloride 107 Carbon Dioxide 27 BUN 12 Creatinine 0.99 Assessment and Plan Assessment Anesthesia Assessment: Chart Reviewed
--- NOTE | 2024-09-12 14:23 | MHC.SHP ---
Pre-Procedural Eval Section A - 24 Hr Update-Section A only Date of Service: 09/12/24 The patient is an INPATIENT: No Changes since office visit: No Cold of Flu in the past 2 weeks, No New Medical Problems, No Changes in Medication and No Patient answered all questions Section B - Complete if H&P > 30 days Chief Complaint: Pilonidal cyst with abscess Allergies: Allergies Allergy/AdvReac Type Severity Reaction Status Date / Time No Known Allergies Allergy Verified 08/28/24 11:13 Review of Systems Sugical H&P ROS: Negative: Constitution, Cardiovascular, Respiratory, Neurological, Psychiatric, Hem-Onc, Allergic/Immunologic, Gastrointestinal, Genitourinary, Musculoskeletal, Integumentary, Endocrine and Eyes/Ears/Nose/Throat Exam Surgical H&P Exam: Normal: HEENT, Normal: Heart, Normal: Lungs, Normal: Extremities, Normal: Abdomen, Normal: Skin and Normal: Neurological Plan I have reviewed the history and physical and performed a pertinent physical examination on my patient. No changes have occurred unless specified. Time Spent With Patient Time: Total time managing care of this patient today ____ minutes.
[2024-11-06 10:07] VITALS: BMI 36.8
--- NOTE | 2024-11-07 08:57 | MHC.SHP ---
Pre-Procedural Eval Section A - 24 Hr Update-Section A only Date of Service: 11/08/24 The patient is an INPATIENT: No Changes since office visit: No Cold of Flu in the past 2 weeks, No New Medical Problems, No Changes in Medication and No Patient answered all questions Section B - Complete if H&P > 30 days Chief Complaint: Pilonidal cyst with abscess Allergies: Allergies Allergy/AdvReac Type Severity Reaction Status Date / Time No Known Allergies Allergy Verified 10/07/24 14:38 Review of Systems Sugical H&P ROS: Negative: Constitution, Cardiovascular, Respiratory, Neurological, Psychiatric, Hem-Onc, Allergic/Immunologic, Gastrointestinal, Genitourinary, Musculoskeletal, Integumentary, Endocrine and Eyes/Ears/Nose/Throat Exam Surgical H&P Exam: Normal: HEENT, Normal: Heart, Normal: Lungs, Normal: Extremities, Normal: Abdomen, Normal: Skin and Normal: Neurological Plan I have reviewed the history and physical and performed a pertinent physical examination on my patient. No changes have occurred unless specified. Time Spent With Patient Time: Total time managing care of this patient today ____ minutes.
[2024-11-08 08:33] VITALS: BP 129/85; PULSE 89; RESP 16; TEMP 37.6; O2SAT 98
[2024-11-08 08:42] LABS: UPreg QC Valid YES; Urine Pregnancy NEGATIVE (NEGATIVE)
[2024-11-08] MEDS: Lactated Ringers 1,000 ML 100 ML IVCONT (09:11)
--- NOTE | 2024-11-08 11:00 | HO.ANESPROP2 ---
Documented by User: Glenys Collier NP 11/06/24 15:00 HPI - Anesthesia Eval Consult details Narrative: 24yo M for Wide Local Excision Pilonidal Cyst of rangel cleft, prone position FTM transgender. He/Him. S/p mastectomy PMFSH Active Problems Active Problems: All Active Problems Pilonidal cyst of rangel cleft (Acute) Pre-op evaluation (Acute) Personal history of ongoing treatment with hormonal therapy (Acute) Annual physical exam (Acute) Status post incision and drainage (Acute) Pilonidal abscess of cleft (Acute) Past Medical History Medical History Transgender Pilonidal cyst Family History Family History Maternal Grandmother Colon cancer Sister Diabetes Surgical History Surgical History Status post incision and drainage H/O mastectomy Social History Social History Housing: Apartment Alcohol intake: current Alcohol intake frequency: holidays/special occasions only Patient Tobacco Use Status: Never used Tobacco Use of substances other than those prescribed or required for medical reasons: Yes Substance Use Type: Marijuana Substance Use Type Other:: last used one month ago Are you DNR?: No Advance Directives: No Advance Directives Information Provided: Yes service: No Current occupational status: employed Cognitive needs: No Hearing needs: No Vision needs: No Meds Allergies Allergy/AdvReac Type Severity Reaction Status Date / Time No Known Allergies Allergy Verified 10/07/24 14:38 Home Medications ?Medication ?Instructions ?Recorded ?Confirmed ?Last Taken ?Type testosterone cypionate 200 mg/mL 200 mg IM Q2W 07/15/24 11/08/24 Unknown History intramuscular oil Exam Height,Weight and Vital Signs: Height 4 ft 11 in Weight 82.554 kg Pertinent Lab Results Pertinent Lab Results: Laboratory Tests 08/23/24 14:44 WBC 8.5 Hgb 16.3 H Hct 48.3 H Plt Count 247 Sodium 141 Potassium 3.9 Chloride 107 Carbon Dioxide 27 BUN 12 Creatinine 0.99 Assessment and Plan Assessment Anesthesia Assessment: Chart Reviewed Documented by User: Moira Mckay DO 11/08/24 11:01 HPI - Anesthesia Eval Consult details Narrative: 24yo M for Wide Local Excision Pilonidal Cyst of rangel cleft, prone position FTM transgender. He/Him. S/p mastectomy Marijuana edibles PMFSH Past Medical History Medical History Transgender Pilonidal cyst Family History Family History Maternal Grandmother Colon cancer Sister Diabetes Family history of problems with anesthesia: No Surgical History Surgical History Status post incision and drainage H/O mastectomy History of Problems with Anesthesia: No Social History Social History Housing: Apartment Alcohol intake: current Alcohol intake frequency: holidays/special occasions only Patient Tobacco Use Status: Never used Tobacco Use of substances other than those prescribed or required for medical reasons: Yes Substance Use Type: Marijuana Substance Use Type Other:: last used one month ago Are you DNR?: No Advance Directives: No Advance Directives Information Provided: Yes service: No Current occupational status: employed Cognitive needs: No Hearing needs: No Vision needs: No Meds Allergies Allergy/AdvReac Type Severity Reaction Status Date / Time No Known Allergies Allergy Verified 10/07/24 14:38 Home Medications ?Medication ?Instructions ?Recorded ?Confirmed ?Last Taken ?Type testosterone cypionate 200 mg/mL 200 mg IM Q2W 07/15/24 11/08/24 Unknown History intramuscular oil Exam Exam Date and Time: 11/08/24 1100 Height,Weight and Vital Signs: Height 4 ft 11 in Weight 82.554 kg Vital Signs Temperature 99.6 F 11/08/24 08:33 Pulse Rate 89 11/08/24 08:33 Respiratory Rate 16 11/08/24 08:33 Blood Pressure 129/85 11/08/24 08:33 Pulse Oximetry 98 11/08/24 08:33 Oxygen Delivery Method Room Air 11/08/24 08:33 Temperature 99.6 F 11/08/24 08:33 Pulse Rate 89 11/08/24 08:33 Respiratory Rate 16 11/08/24 08:33 Blood Pressure 129/85 11/08/24 08:33 Pulse Oximetry 98 11/08/24 08:33 Oxygen Delivery Method Room Air 11/08/24 08:33 Airway Mallampati Class: I TM Dist: >3cm Neck ROM: Full Loose/Missing/Broken Teeth: No (patient denies any loose or broken teeth) Heart: S1S2 Lungs: CTAB Assessment and Plan Assessment Anesthesia Assessment: Anesthesia Plan Discussed and Chart Reviewed Final Anesthetic Review Family History of Problems with Anesthesia: No History of Problems with Anesthesia: No NPO: Yes ASA Class: II Final Preanesthetic Review: No Changes in Pt Med Stat, Meds/Allgs Chart Reviewed, Consent Obtained/Reviewed and Anes Risks/Benef Reviewed Patient Risk: Low Procedure Risk: Low Anesthetic Plan Anesthetic Plan: MAC: and Agree w/ Assess. and Plan Disposition: Standard PACU
--- NOTE | 2024-11-08 11:59 | P.OP_ITS ---
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 Postop diagnosis: [] The same Procedure [] wide local excision pilonidal cyst of rangel cleft Surgeon: [] Richard Dry Paste Supervisor: [] Type of Anesthesia: [] MAC Indication for surgery: [] Uneventful excision of pilonidal cyst from cleft The patient was brought to the operating room, placed on operative table supine position, after an adequate level of MAC anesthesia was induced, the the buttocks were retracted with tape and the cleft area prepped and draped in usual sterile fashion using a longitudinal by elliptical incision encompassing diseased area, this carried down through skin, subcutaneous tissue, down to posterior sacral fascia encompassing all disease and disease tract. Wound was irrigated, secured hemostasis, and closed in the following manner; subcutaneous tissue to wound base to contralateral subcutaneous tissue interrupted 0 Vicryl was were initially placed. Skin was closed using interrupted inverted dermal 2-0 Vicryl. Vertical mattress 2-0 nylon sutures were then placed. Sterile dressing was applied. Wound was infiltrated at the beginning at the end with 0.5% Marcaine/1% lidocaine. Sponge, needle, and instrument counts reported correct. Patient tolerated the procedure well and emerged from anesthesia stable condition. EBL minimal
[2024-11-08 12:01] VITALS: PULSE 87; RESP 16; TEMP 36.1; O2SAT 98
[2024-11-08 12:16] VITALS: BP 123/88; PULSE 97; RESP 16; TEMP 36.1; O2SAT 96
[2024-11-08 12:29] VITALS: BP 120/80; PULSE 97; RESP 16; TEMP 36.1; O2SAT 96
== END 2024-11-08 13:02 | disposition home or self-care (01) ==
PROVIDERS: Nurse Practitioner; Visit Provider Surgery
PROC: (CPT 11771; principal; 2024-11-08 10:10)
DX: L05.01 Pilonidal cyst with abscess (principal); F64.0 Transsexualism; Z90.10 Acquired absence of unspecified breast and nipple
CPT/HCPCS: 11771; 81025; 88304; J0690; J1100; J1885; J2003; J2250; J2405; J2704; J2795; J3010

== ENCOUNTER → 2024-11-08 08:02 | Outpatient (BNV) | payer OTHER, SELFPAY | PROVIDERS: Visit Provider Surgery | DX: L05.01 Pilonidal cyst with abscess (principal) | CPT/HCPCS: 11772 ==

== ENCOUNTER 2024-11-19 10:53 | Outpatient (AMB) | payer OTHER, SELFPAY ==
--- NOTE | 2024-11-19 10:54 | A.OFFVIS_ITS ---
Intake Visit Reasons: S/P WLE pilonidal cyst of rangel cleft Intake Note: Patient here s/p wide local excision pilonidal cyst of rangel cleft. Patient c/o: bleeding from the suture that's near anus. Denies pain. Surgery: 11-08-2024 Race Relations Adviser Required: No Accompanied by: Self / Same As Patient Allergies No Known Allergies Allergy (Verified 11/19/24 10:56) HPI Comments Details: Patient presents for follow-up status post pilonidal cyst of cleft excision. Aside from incisional discomfort which is improving, patient was doing well. Pathology is benign. [facility] Medical History (Updated 09/28/24 @ 00:01 by Jessica Ventura) Transgender Pilonidal cyst Surgical History (Updated 11/19/24 @ 11:12 by Richard Ramos MD) Pilonidal cyst of cleft (11/08/24) Status post incision and drainage H/O mastectomy Family History Maternal Grandmother Colon cancer Sister Diabetes Social History Housing: Apartment Alcohol intake: current Alcohol intake frequency: holidays/special occasions only Patient Tobacco Use Status: Never used Tobacco Substance Use Type: Marijuana service: No Current occupational status: employed Cognitive needs: No Hearing needs: No Vision needs: No Physical Exam Back/Spine/Pelvis Other: Incision is clean dry and intact. The most inferior aspect has some mild separation which is expected since this is of the crotch of the lower extremities but otherwise wound is healing uneventfully. Assessment & Plan Assessment & Plan (1) Encounter for postoperative wound check: Code(s): Z48.89 - Encounter for other specified surgical aftercare Category: Surgical Plan Patient was see me early next week time for formal suture removal. All questions answered. Patient to continue avoiding strenuous activities Coding Level of Care Code Global (56452) Diagnoses Encounter for postoperative wound check Z48.89
== END 2024-11-19 11:07 | disposition home or self-care (01) ==
PROVIDERS: Visit Provider Surgery
DX: Z48.89 Encounter for other specified surgical aftercare (principal)
CPT/HCPCS: 99024

== ENCOUNTER → 2024-11-19 10:53 | Outpatient (BNVA) | payer OTHER, SELFPAY | PROVIDERS: Visit Provider Surgery | DX: Z48.89 Encounter for other specified surgical aftercare (principal); Z48.1 Encounter for planned postprocedural wound closure | CPT/HCPCS: 99212 ==

== ENCOUNTER 2024-11-25 09:47 | Outpatient (AMB) | payer OTHER, SELFPAY ==
--- NOTE | 2024-11-25 10:14 | MHC.OFFVIS ---
Intake Visit Reasons: S/P suture removal~ cleft Allergies No Known Allergies Allergy (Verified 11/19/24 10:56) HPI Comments Details: Patient presents for 2nd follow-up status post pilonidal cyst excision. He has no wound issues or complaints aside from a little occasional drain drainage from the most inferior part.. [facility] Medical History (Updated 09/28/24 @ 00:01 by Jessica Ventura) Transgender Pilonidal cyst Surgical History (Updated 11/25/24 @ 10:16 by Richard Ramos MD) Pilonidal cyst of cleft (11/08/24) Status post incision and drainage H/O mastectomy Family History Maternal Grandmother Colon cancer Sister Diabetes Social History Housing: Apartment Alcohol intake: current Alcohol intake frequency: holidays/special occasions only Patient Tobacco Use Status: Never used Tobacco Substance Use Type: Marijuana service: No Current occupational status: employed Cognitive needs: No Hearing needs: No Vision needs: No Physical Exam Back/Spine/Pelvis Other: The upper portion of the wound is healed very well. The most inferior part has some mild separation which is expected at the the crotch of the lower extremities. No evidence of any infection. Sutures uneventfully removed Assessment & Plan Assessment & Plan (1) Postop check: Code(s): Z09 - Encounter for follow-up examination after completed treatment for conditions other than malignant neoplasm Category: Surgical Plan Patient would like to return to work. He has been given a note for this with light duty for the next 3 weeks time. He has been given local instructions. Treated have any issues or complaints, and he has been instructed to contact the office will otherwise follow-up p.r.n.. All questions answered. Coding Level of Care Code Global (00722) Diagnoses Postop check Z09
== END 2024-11-25 10:02 | disposition home or self-care (01) ==
PROVIDERS: Visit Provider Surgery
DX: Z09 Encounter for follow-up examination after completed treatment for conditions other than malignant neoplasm (principal)
CPT/HCPCS: 99024

== ENCOUNTER → 2024-11-25 09:47 | Outpatient (BNVA) | payer OTHER, SELFPAY | PROVIDERS: Visit Provider Surgery | DX: Z09 Encounter for follow-up examination after completed treatment for conditions other than malignant neoplasm (principal) | CPT/HCPCS: 99212 ==

== ENCOUNTER 2025-09-12 08:32 | Outpatient (AMB) | payer OTHER, SELFPAY ==
--- NOTE | 2025-09-12 08:35 | A.OFFPC_ITS ---
Vital Signs 09/12/25 08:40 Height 5 ft 1.42 in Weight 184 lb 6 oz BMI 34.4 BP 112/72 Blood Pressure Location Lt brachial Position Sitting Pulse 72 Pulse Source Pulse Oximeter Temp Source Temporal Artery Scan Pulse Oximetry (%) 98 Oxygen Delivery Method Room Air Intake Visit Reasons: Annual Exam Allergies No Known Allergies Allergy (Verified 09/12/25 08:53) Medication List - Last Reconciled 09/12/25 by Radha Lehman PA-C cholecalciferol (vitamin D3) 25 mcg PO DAILY testosterone cypionate 200 mg IM Q2W Tobacco use date assessed: 09/12/25 Dental Screening Dental Screen Date: 09/12/25 Did you have a dental visit in the last 12 months?: No Did you have a dental problem in the last 6 months where you did not have access to dental care?: No Was dental information given to patient?: No HPI Annual Exam HPI Details 25-year-old assigned female at tra nsitioning to male with no relevant past medical history last seen 08/2024 coming in for annual exam. Presenting with a wellness check-up and management of ongoing health concerns. The patient has not been taking vitamin D supplements and will retest levels due to increased outdoor activity. Earwax impaction noted, advised against Q-tip use, and ear drops prescribed. pap smears: not UTD declines referral to gynecology today vaccines: Td UTD and flu given today eye exam: [facility] Medical History Transgender Pilonidal cyst Surgical History Pilonidal abscess of rangel cleft Pilonidal cyst of cleft (11/08/24) Status post incision and drainage H/O mastectomy Family History Maternal Grandmother Colon cancer Sister Diabetes Other FH: mental illness Social History Housing: Apartment Alcohol intake: current Alcohol intake frequency: holidays/special occasions only Patient Tobacco Use Status: Never used Tobacco Tobacco use type: Cigarette e-Cigarette/Vaping Use: Never Used Second Hand Smoke Exposure: No Substance Use Type: Marijuana service: No Current occupational status: employed 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 1. Little interest or pleasure in doing things: not at all 2. Feeling down, depressed, or hopeless: several days 3. Trouble falling or staying asleep, or sleeping too much: not at all 4. Feeling tired or having little energy: not at all 5. Poor appetite or overeating: not at all 6. Feeling bad about yourself - or that you are a failure or have let yourself or your family down: several days 7. Trouble concentrating on things, such as reading the newspaper or watching television: not at all 8. Moving or speaking so slowly that other people could have noticed. Or the opposite - being so fidgety or restless that you have been moving around a lot more than usual: not at all 9. Thoughts that you would be better off or of hurting yourself in some way: not at all Total score: 2 Depression Screening Interpretation: Negative Depression Screening Done: Yes 60417 - PHQ-9 Billing: Yes Source: Developed by Drs. Judd Hollins, Mariam Putnam, Shaheen Talbot and colleagues, with an educational rainer from [employer]. Thrive Questionnaire Date Thrive assessed: 09/11/25 I am a: Patient What is your living situation today?: I have a steady place to live Within the past 12 months, did the food you bought not last and you didn't have the money to get more?: Never true Within the past 12 months, did you worry whether your food would run out before you got money to buy more?: Never true Do you have trouble paying for medicines?: No Do you have trouble getting transportation to medical appointments?: No Do you have trouble paying your heating and electricity bill?: No Do you have trouble taking care of your child, family member or friend?: Yes Do you have trouble with day-to-day activities such as bathing, preparing meals, shopping, managing finances, etc.?: No Are you currently unemployed and looking for a job?: No Are you interested in more education?: No Please select the resources that you would like help with: None Currently or been in a relationship where the following occur: No concerns reported THRIVE Score: 0 AUDIT C Alcohol Use Questionnaire (AUDIT-C) 1. How often do you have a drink containing alcohol?: Monthly or less 2. How many drinks containing alcohol do you have on a typical day when you are drinking?: 3 or 4 3. How often do you have six or more drinks on one occasion?: Never Total Score: 2 STEPHEN-7 AMB Questionnaire STEPHEN-7 Date STEPHEN - 7 assessed: 09/12/25 Feeling nervous, anxious, or on edge: 1 = Several days Not being able to stop or control worryin = Several days Worrying too much about different things: 1 = Several days Trouble relaxin = Several days Being so restless that it is hard to sit still: 0 = Not at all Becoming easily annoyed or irritable: 1 = Several days Feeling afraid as if something awful might happen: 1 = Several days Total STEPHEN-7 score (0-4 normal; 5-9 mild; 10-14 moderate; 15-21 severe): 6 Source: Developed by Drs. Judd Hollins, Mariam Putnam, Shaheen Talbot and colleagues, with an educational rainer from [employer]. STEPHEN-7 Assessment Billing STEPHEN-7 Assessment Tool: STEPHEN-7 Assessment 93927 Review of Systems Const Denies body aches, Denies fatigue, Denies fever(s), Denies frequent falls, Denies headache(s) and Denies weakness Eyes Reports no additional complaints, Denies change in vision and Reports requires corrective lenses ENT Denies dysphagia, Denies dizziness, Denies facial pain, Denies headache(s), Denies nasal congestion and Denies odynophagia Card Denies chest pain, Denies syncope, Denies irregular heart rhythm, Denies leg edema, Denies lightheadedness and Denies dyspnea Resp Denies cough and Denies dyspnea GI Denies abdominal pain, Denies constipation, Denies dysphagia, Denies dyspepsia, Denies diarrhea, Denies nausea, Denies odynophagia and Denies vomiting Denies urinary frequency, Denies dysuria, Denies urinary hesitancy and Denies urinary urgency Musc Denies back pain and Denies myalgias Skin/Breast Reports system reviewed and no additional complaints, except as documented Neuro Denies dizziness, Denies syncope, Denies frequent falls, Denies headache(s) and Denies weakness Psych Reports no additional complaints Endo Denies fatigue Physical exam (Primary Care) Vital Signs: Last Vital Signs Pulse 72 09/12/25 08:40 BP 112/72 09/12/25 08:40 Pulse Ox 98 09/12/25 08:40 Oxygen Delivery Method Room Air 09/12/25 08:40 BMI result Body Mass Index 34.4 Tobacco/Smoking Status: Tobacco use Status Tobacco use date assessed 09/12/25 09/12/25 08:44 Patient Tobacco Use Status Never used Tobacco 09/12/25 08:36 Tobacco use type Cigarette 09/12/25 08:57 e-Cigarette/Vaping Use Never Used 09/12/25 08:59 PHQ-9: PHQ-9 Score PHQ-9: Total score 2 09/12/25 08:55 Depression Screening Interpretation: Negative Thrive Assessment: Date of Thrive Assessment Date Thrive assessed 09/11/25 09/12/25 08:36 Currently or been in a relationship where the following occur: No concerns reported Const General: cooperative, healthy appearing, comfortable and no acute distress Nutritional Appearance: obese Orientation/consciousness: patient oriented x3 HENMT Head: Yes normocephalic Ears: hearing grossly normal bilaterally, external ears normal and Abnormal EAC present cerumen impaction on the right and excessive cerumen on the left General nose exam: Normal external nose present Face and sinus: Yes normal facial exam and Yes sinuses nontender Mouth: Normal oral and palatal mucosa present and tongue normal Throat: Yes posterior oropharynx normal Eyes General: appearance normal, both eyes and all related structures Conjunctivae: conjunctivae normal Pupils: Equal, round and reactive pupils present EOM: EOMs intact bilaterally and No Nystagmus present Neck Neck: Yes normal visual inspection, Yes full ROM and Yes no lymphadenopathy Chest Chest palpation & inspection: normal inspection of the chest Resp Effort & Inspection: normal respiratory effort Auscultation: clear to auscultation bilaterally, no crackles, no rales, no rhonchi, no wheezes and breath sounds present Cardio Rate: regular rate Rhythm: regular rhythm Peripheral pulses: radial pulses present and dorsalis pedis present GI Inspection: Yes normal to inspection and No Abdominal wall edema Palpation (GI): Soft to palpation, not firm and nontender Auscultation: normal bowel sounds Rectal Exam - Female: deferred General: Yes no CVA tenderness Back/Spine/Pelvis Back: no CVA tenderness Skin General skin exam: no rashes or lesions noted Neuro General: patient oriented x3 Cranial nerves: Yes Equal, round and reactive pupils present, Yes Midline tongue present, Yes Ability to bilaterally elevate shoulders present and No Nystagmus present Gait exam (Neuro): Normal gait present Extrem General: Yes normal to inspection, Yes full ROM, No no pedal edema and No edema Psych Speech and movement: Normal speech and movement present Affect: normal affect Insight: Good insight present (Psych) Judgement: Good judgement present (Psych) Office Procedures Flu Questionnaire Does the patient have a severe egg allergy?: No Does the patient have severe life threatening allergies?: No Does the patient have a fever or illness today?: No Has the patient ever had Guillain-Ellis Syndrome?: No Has the patient ever had any past reaction to a flu shot?: No Immunizations Fluarix [id number] (PF) 45 mcg (15 mcg x 3)/0.5 mL IM syringe Performing Provider: Radha Lehman PA-C [facility] Administered by: Hoa Griffin CMA on 09/12/25 09:16 Dose Route Admin Location Dispensed Lot Number Expiration Date NDC Mortgage Originator 0.5 mL IM Left Deltoid 0.5 mL [id number] 05/19/26 [id number] [place] VIS Given Date VIS Provided VIS Publication Date 09/12/25 Single Vaccine 24 Eligibility Eligibility Date Funding Source Not [facility] Eligible 09/12/25 Private Coding Level of Care Code Est Pt Prev Care 18-39y(22308) Diagnoses Annual physical exam Z00.00 Personal history of ongoing treatment with hormonal therapy Z79.890 Obesity (BMI 30.0-34.9) E66.9 Vitamin D deficiency E55.9 Cerumen impaction H61.20 Additional Codes STEPHEN-7 Assessment Billing - STEPHEN-7 Assessment Tool: STEPHEN-7 Assessment 54934 ([id number]) PHQ-9 - 35959 - PHQ-9 Billing: Yes ([id number]) Assessment & Plan Assessment & Plan (1) Annual physical exam: Code(s): Z00.00 - Encounter for general adult medical examination without abnormal findings Category: Medical Plan: Patient is up-to-date on all recommended vaccines for her age and was given the flu shot in the office today. She is unsure about Pap smears and she agrees to reach out if she would like referral to Gynecology. Healthy diet and regular exercise is encouraged. Ordered for updated blood work and plan to follow up yearly or sooner as needed pending blood work evaluation (2) Personal history of ongoing treatment with hormonal therapy: Comment: [facility] Code(s): Z79.890 - Hormone replacement therapy Category: Medical Plan: [facility] continue to monitor labs as well. (3) Obesity (BMI 30.0-34.9): Code(s): E66.9 - Obesity, unspecified Category: Medical Plan: Healthy diet and regular exercise is encouraged. (4) Vitamin D deficiency: Code(s): E55.9 - Vitamin D deficiency, unspecified Category: Medical Plan: The patient has not been taking vitamin D supplements. A retest of vitamin D levels is planned due to increased outdoor activity, which may improve levels naturally. (5) Cerumen impaction: Code(s): H61.20 - Impacted cerumen, unspecified ear Category: Medical Plan: Earwax impaction was noted, and the patient was advised against using Q-tips. Ear drops were prescribed to help manage the condition. Plan This note was constructed using voice recognition software. While every effort has been made to ensure accuracy and enterprise account manager, still areas may have been included sometimes these areas may affect the content or meeting of the given symptoms. Total time spent caring for the patient today was 30 minutes. This includes time spent before the visit reviewing the chart, time spent during the visit, and time spent after the visit and documentation. Patient was informed and verbally consented to the use of an ambient scribe for clinic note documentation during this visit. Orders: Orders Vitamin D 25-OH Total Today Z13.21 - Encounter for screening for nutritional disorder Lipid Panel Today Z13.220 - Encounter for screening for lipoid disorders Comprehensive Met. Panel Today Z00.00 - Encounter for general adult medical examination without abnormal findings, Z79.890 - Hormone replacement therapy Influenza [id number] Immunization Today Z23 - Encounter for immunization TSH reflex Free T4 Today Z13.29 - Encounter for screening for other suspected endocrine disorder Vitamin B12 and Folate Today Z13.21 - Encounter for screening for nutritional disorder Complete Blood Count Auto Diff Today Z13.0 - Encounter for screening for diseases of the blood and blood-forming organs and certain disorders involving the immune mechanism Medications: New carbamide peroxide 6.5% (Debrox) 5 drps otic (ear) right DAILY 15 mL 0RF 4 days
[2025-09-12 08:40] VITALS: BP 112/72; PULSE 72; O2SAT 98; BMI 34.4
== END 2025-09-12 09:18 | disposition home or self-care (01) ==
LOC: HO.HMCH 08:33
DX: Z00.00 Encounter for general adult medical examination without abnormal findings (principal); Z79.890 Hormone replacement therapy; Z68.34 Body mass index [BMI] 34.0-34.9, adult; E66.9 Obesity, unspecified; E55.9 Vitamin D deficiency, unspecified; H61.23 Impacted cerumen, bilateral; Z23 Encounter for immunization

== ENCOUNTER → 2025-09-12 08:32 | Outpatient (BNVA) | payer OTHER, SELFPAY | DX: Z00.00 Encounter for general adult medical examination without abnormal findings (principal); F64.0 Transsexualism; E66.9 Obesity, unspecified; E55.9 Vitamin D deficiency, unspecified; H61.20 Impacted cerumen, unspecified ear; Z23 Encounter for immunization; Z79.890 Hormone replacement therapy; Z68.34 Body mass index [BMI] 34.0-34.9, adult | CPT/HCPCS: 90471; 90656; 96127; 99395 ==